=== PATIENT | female | born 1945 | race Asian ===

== ENCOUNTER 2018-10-16 09:41 | Inpatient (IN) | payer MEDICARE, OTHER ==
[~2018-10-16] VITALS: Ht 149.9 cm; Wt 44.6 kg
[2018-10-16] MEDS ORDERED: SODIUM CHLORIDE 0.9% 1,000 ML IV ONE (11:12)
[2018-10-16] MEDS ORDERED: FAMOTIDINE 20MG/2ML VIAL IV STA (11:12)
[2018-10-16 11:23] LABS: BASOPHILS % 0.4 % (0.0-2.0); HEMATOCRIT. 40.3 % (36.0-48.0); HEMOGLOBIN. 13.8 g/dL (12.0-16.0); LYMPHOCYTES % 8.1 % (20.0-50.0); MEAN CORPUSCULAR HEMOGLOBIN 28.9 pg (28.0-32.0); MEAN CORPUSCULAR VOLUME 84.3 fL (81.0-99.0); MEAN PLATELET VOLUME 6.6 fl (7.4-10.4); MONOCYTES % 4.6 % (2.0-8.0); NEUTROPHILS % 86.9 % (40.0-76.0); PLATELET 341 x1000/uL (130-400); RED BLOOD CELL COUNT 4.78 mill/uL (4.2-5.4); RED CELL DISTRIBUTION WIDTH 14.7 % (11.6-14.6)
[2018-10-16 11:29] LABS: CHLORIDE 77 mEq/L (98-107)
[2018-10-16 11:30] LABS: PROTHROMBIN TIME 9.9 sec (9.6-11.0)
[2018-10-16] MEDS ORDERED: KCL 10MEQ/50ML PREMIX 50 ML IV NR (11:45)
[2018-10-16] MEDS ORDERED: POTASSIUM CHLORIDE 20MEQ TABLET SR PO ONE (11:45)
[2018-10-16] MEDS ORDERED: MAGNESIUM 1 G PREMIX 100 ML IV ONE (12:00)
[2018-10-16 12:16] LABS: CLARITY URINE CLOUDY (CLEAR); COLOR URINE YELLOW (YELLOW); KETONES URINE 1+ (NEGATIVE); LEUKOCYTE ESTERASE URINE NEGATIVE (NEGATIVE); NITRITE URINE NEGATIVE (NEGATIVE); OCCULT BLOOD URINE 1+ (NEGATIVE); PROTEIN URINE 2+ (NEGATIVE); UROBILINOGEN URINE 0.2 E.U./dL (0.2-1.0)
[2018-10-16] MEDS ORDERED: CLONIDINE 0.1MG TABLET PO PRN (13:00)
[2018-10-16] MEDS ORDERED: ACETAMINOPHEN 325MG TABLET PO PRN (13:00)
[2018-10-16] MEDS ORDERED: ONDANSETRON HCL 4MG/2ML INJ IV PRN (13:00)
[2018-10-16] MEDS ORDERED: DOCUSATE SODIUM 100MG CAPSULE PO PRN (13:00)
[2018-10-16] MEDS ORDERED: GUAIFENESIN 200MG/10ML SUGAR FREE UDC PO PRN (13:00)
[2018-10-16] MEDS ORDERED: IPRATROPIUM/ALBUTEROL 0.5-3(2.5)MG/3ML NEB HHN PRN (13:00)
[2018-10-16] MEDS ORDERED: MAGNESIUM/ALUMINUM HYDROXIDE/SIMETHICONE 30ML UDC PO PRN (13:00)
[2018-10-16] MEDS ORDERED: DIPHENHYDRAMINE 50MG/ML VIAL IV PRN (13:00)
[2018-10-16] MEDS ORDERED: IOHEXOL-300 100 ML BOTTLE ONE (14:09)
[2018-10-16 15:15] LABS: PHOSPHORUS 2.4 mg/dL (2.5-4.9)
[2018-10-16] MEDS ORDERED: MORPHINE SULFATE 2 MG/ML CPJ (NOT FOR IM USE) IV PRN (16:00)
[2018-10-16 16:20] VITALS: BP 130/69
[2018-10-16] MEDS ORDERED: ENOXAPARIN 40MG/0.4ML SYR SUBCUT SCH (16:30)
[2018-10-16 16:48] LABS: CHLORIDE 87 mEq/L (98-107)
[2018-10-16] MEDS: SODIUM CHLORIDE 0.9% 1,000 ML IV SCH (17:23)
[2018-10-16] MEDS ORDERED: MAGNESIUM 2 G PREMIX 50 ML IV NR (17:30)
[2018-10-16] MEDS ORDERED: HYDR25TA PO (18:27)
[2018-10-16] MEDS ORDERED: METO25TA6 PO (18:27)
[2018-10-16] MEDS ORDERED: ASPI-986 PO (18:27)
[2018-10-16] MEDS ORDERED: METF-414 PO (18:27)
[2018-10-16] MEDS ORDERED: BENA20TA10 PO (18:27)
[2018-10-16 20:10] VITALS: BP 122/56
[2018-10-16] MEDS ORDERED: ATOR20TA65 PO (20:11)
[2018-10-16] MEDS ORDERED: DEXTROSE 50% WATER 50ML SYRINGE IV PRN (22:30)
[2018-10-17] VITALS: BP 132/54
[2018-10-17 04:07] VITALS: BP 145/58
[2018-10-17] MEDS: BLOOD SUGAR DIAGNOSTIC STRIP TEST SCH ×3 (06:40→17:20)
[2018-10-17] MEDS: INSULIN LISPRO 100 UNITS/ML SUBCUT SCH ×3 (07:08→17:50)
[2018-10-17 07:10] LABS: CHLORIDE 93 mEq/L (98-107)
[2018-10-17 07:37] LABS: HDL CHOLESTEROL 71 mg/dL (40-59); LDL CHOLESTEROL 94 mg/dL (5-100)
[2018-10-17 08:00] VITALS: BP 146/55
[2018-10-17 11:13] LABS: BASOPHILS % 1.1 % (0.0-2.0); EOSINOPHILS % 0.7 % (0.0-5.0); HEMATOCRIT. 34.7 % (36.0-48.0); HEMOGLOBIN. 11.8 g/dL (12.0-16.0); LYMPHOCYTES % 25.8 % (20.0-50.0); MEAN CORPUSCULAR HEMOGLOBIN 28.7 pg (28.0-32.0); MEAN CORPUSCULAR VOLUME 84.6 fL (81.0-99.0); MEAN PLATELET VOLUME 6.8 fl (7.4-10.4); MONOCYTES % 10.8 % (2.0-8.0); NEUTROPHILS % 61.6 % (40.0-76.0); PLATELET 314 x1000/uL (130-400)
[2018-10-17 12:00] VITALS: BP 127/60
[2018-10-17] MEDS: SODIUM CHLORIDE 0.9% 1,000 ML IV SCH (12:30)
[2018-10-17] MEDS ORDERED: ENOXAPARIN 30MG/0.3ML SYR SUBCUT SCH (15:00)
[2018-10-17 16:00] VITALS: BP 144/66
[2018-10-17] MEDS ORDERED: METOCLOPRAMIDE HCL 5MG TABLET PO SCH (18:00)
[2018-10-17 18:44] VITALS: BP 125/72
[2018-10-17] MEDS ORDERED: ATORVASTATIN CALCIUM 20MG TABLET PO SCH (21:00)
== END 2018-10-17 20:10 | disposition short-term general hospital (02) | DRG 426 ==
LOC: ER 09:41 → 6WST 12:49 → EDBEDREQ 13:07 → EDBEDREQTM 13:07 → ENRESERV 13:13
PROVIDERS: ADMIT Internal Medicine; ATTEND Internal Medicine
DX: E87.1 Hypo-osmolality and hyponatremia (principal); I69.351 Hemiplegia and hemiparesis following cerebral infarction affecting right dominant side; E11.9 Type 2 diabetes mellitus without complications; F41.9 Anxiety disorder, unspecified; K76.0 Fatty (change of) liver, not elsewhere classified; E87.6 Hypokalemia; I10 Essential (primary) hypertension; M54.30 Sciatica, unspecified side; N39.0 Urinary tract infection, site not specified; Z79.82 Long term (current) use of aspirin; Z79.84 Long term (current) use of oral hypoglycemic drugs
CPT/HCPCS: 36415; 71045; 74177; 80048; 80061; 81003; 82962; 83605; 83735; 84100; 84443; 84484; 93005; 93970; 99291; J1650; J3475; J3480; J3490; J7030; J8597; Q9967